=== PATIENT | male | born 1960 | race Caucasian/White ===

== ENCOUNTER → 2017-06-19 | Outpatient (CLI) | payer OTHER ==
[~2017-06-19] MED LIST: VIAG100T PO
== END ==
LOC: CLAB 08:45
PROVIDERS: ATTEND Specialist
DX: B18.2 Chronic viral hepatitis C (principal); Z79.899 Other long term (current) drug therapy; Z13.228 Encounter for screening for other metabolic disorders
CPT/HCPCS: 36415; 82140